=== PATIENT | male | born 1985 | race Caucasian/White ===

== ENCOUNTER → 2021-06-27 | Outpatient (CLI) | payer BC ==
--- NOTE | 2021-06-27 11:17 | REP ---
INDICATION: PAIN COMPARISON: None. TECHNIQUE: AP, lateral, sunrise views of the left knee FINDINGS: Examination is essentially age-appropriate. No overt osteoarthritic changes are appreciated. No evidence for acute or healed injury. No effusion. IMPRESSION: Essentially age-appropriate radiographic evaluation of the left knee. <Electronically signed by Guerrero Browne > 06/27/21 [id number]
== END ==
LOC: M RAD 10:40
PROVIDERS: ATTEND Family Medicine Addiction Medicine
DX: M25.562 Pain in left knee (principal)